=== PATIENT | male | born 1960 | race African-American/Black ===

== ENCOUNTER 2017-07-13 10:06 | Emergency (ER) | payer SELFPAY ==
[~2017-07-13] VITALS: Ht 180.3 cm; Wt 90.7 kg
[2017-07-13 11:48] VITALS: BP 132/78
[2017-07-13] MEDS ORDERED: FLUORESCEIN SOD 1 MG TEST STRIP LEFTEYE ONE (12:15)
[2017-07-13] MEDS ORDERED: TETRACAINE HCL 0.5% OPTH(EYE) SOLN 4ML LEFTEYE ONE (12:15)
[2017-07-13] MEDS ORDERED: TIMOLOL MALEATE 0.25 % OPTH SOL 5ML LEFTEYE ONE (13:15)
== END 2017-07-13 14:10 | disposition home or self-care (01) ==
LOC: ER 10:06
DX: T15.02XA Foreign body in cornea, left eye, initial encounter (principal); E11.9 Type 2 diabetes mellitus without complications; I10 Essential (primary) hypertension; X58.XXXA Exposure to other specified factors, initial encounter; Y93.89 Activity, other specified; Y92.89 Other specified places as the place of occurrence of the external cause; Y99.8 Other external cause status
CPT/HCPCS: 65220